=== PATIENT | female | born 1995 | race American Indian/Alaskan Native ===

== ENCOUNTER 2016-09-20 02:16 | Emergency (ER) | payer MEDICAID, OTHER ==
[2016-09-20 02:47] VITALS: BP 128/68; PULSE 80; RESP 17; TEMP 98.9; O2SAT 100
[2016-09-20] MEDS ORDERED: Tmp-Smz 800 mg-160 mg DS Tab PO STA (03:03)
[2016-09-20] MEDS ORDERED: Tmp-Smz 800 mg-160 mg DS Tab ONE (03:18)
--- NOTE | 2016-09-20 03:20 | ED PDOC ---
HPI: Skin/Bite Injury Time Seen by Provider: 09/20/16 02:42 Chief Complaint (Nursing): Abnormal Skin Integrity Chief Complaint (Provider): lump to right hip History Per: Patient History/Exam Limitations: no limitations Onset/Duration Of Symptoms: Days (6) Current Symptoms Are (Timing): Still Present Quality Of Symptoms: Painful Additional History Per: Patient Additional Complaint(s): 20 y/o female presents for eval of painful lump to right hip x 6 days. PAtient states area started as "pimple", the next day she noted it to spontaneously open and drain yellow discharge. Patient notes pain since then. Denies fever, nausea/vomiting, limitation of movement. Past Medical History Reviewed: Historical Data, Nursing Documentation, Vital Signs Vital Signs: Last Vital Signs Temp 98.9 F 09/20/16 02:30 Pulse 80 09/20/16 02:30 Resp 17 09/20/16 02:30 BP 128/68 09/20/16 02:30 Pulse Ox 100 09/20/16 02:30 - Medical History PMH: Back Problems, Gall Bladder Disease (Cholelithiasis) - Surgical History Surgical History: Cholecystectomy - Family History Family History: States: Unknown Family Hx - Immunization History Hx Tetanus Toxoid Vaccination: No Hx Influenza Vaccination: No Hx Pneumococcal Vaccination: No - Home Medications Home Medications: Ambulatory Orders Medication Instructions Recorded Carbamide Peroxide [Debrox Ear 10 drop .ROUTE BID #1 bottle 03/17/16 Drops] Ibuprofen [Motrin Tab] 1 tab PO Q6 PRN #20 tab 09/20/16 Sulfamethoxazole/Trimethoprim 1 tab PO BID #13 tab 09/20/16 [Bactrim DS 800 mg-160 mg] - Allergies Allergies/Adverse Reactions: Allergies Allergy/AdvReac Type Severity Reaction Status Date / Time shrimp Allergy Verified 06/19/15 18:01 Review of Systems ROS Statement: Except As Marked, All Systems Reviewed And Found Negative Skin: Positive for: Lesions (right hip) Physical Exam - Reviewed Nursing Documentation Reviewed: Yes Vital Signs Reviewed: Yes - Physical Exam Appears: Positive for: Well, Non-toxic, No Acute Distress Head Exam: Positive for: ATRAUMATIC, NORMAL INSPECTION, NORMOCEPHALIC Cardiovascular/Chest: Positive for: Regular Rate, Rhythm Respiratory: Positive for: Normal Breath Sounds Extremity: Positive for: Normal ROM, Other (open/dry lesion right hip area mild surrounding tenderness/erythema. NO active drainage, fluctuance noted) Neurologic/Psych: Positive for: Alert, Oriented - ECG O2 Sat by Pulse Oximetry: 100 - Progress ED Course And Treament: Patient educated on findings, discharged with rx bactrim DS, ibuprofen (doses given in ED). Advised warm compresses. Follow up PMD 2-3 days. Return to ED for worsening/concerning symptoms. Disposition - Clinical Impression Clinical Impression: Cellulitis, Abscess - Patient ED Disposition Is Patient to be Admitted: No Counseled Patient/Family Regarding: Diagnosis, Need For Followup, Rx Given - Disposition Referrals: Kevin Pierson MD [Primary Care Provider] - Disposition: Routine/Home Disposition Time: 03:20 Condition: GOOD Additional Instructions: Apply warm compresses 3-5 times daily. Take medication as directed. Return to ED for fever, increased pain/redness at site, or other concerning symptoms. Prescriptions: Ibuprofen [Motrin Tab] 1 tab PO Q6 PRN #20 tab PRN Reason: Pain, Moderate (4-7) Sulfamethoxazole/Trimethoprim [Bactrim DS 800 mg-160 mg] 1 tab PO BID #13 tab Instructions: Abscess (ED), Cellulitis (ED)
== END 2016-09-20 03:31 | disposition home or self-care (01) ==
LOC: H.ER 02:16
DX: L02.413 Cutaneous abscess of right upper limb (principal)